=== PATIENT | female | born 1950 | race Caucasian/White ===

== ENCOUNTER 2016-12-14 00:43 | Day surgery (SDC) | payer OTHER ==
[~2016-12-14] VITALS: Ht 167.6 cm; Wt 72.6 kg
[~2016-12-14 00:43] MED LIST: ALPR0.254 PO; CHOL200047 PO; DIPH25CA6 PO; KRIL1CAP PO; PSYL660P17 PO; VITA1CAP16 PO
[2016-12-14] MEDS ORDERED: Lactated Ringer's 1,000 ML IV ONE (06:00)
[2016-12-14] MEDS ORDERED: Lactated Ringer's 1,000 ML IV SCH (07:10)
[2016-12-14 12:04] VITALS: BP 135/83; PULSE 101; RESP 16; O2SAT 99
--- NOTE | 2016-12-14 12:33 | PCM.HPANE ---
Patient Data Surgeon Admitting Provider: Attending Provider:Eduardo Bishop MD Primary Care Physician:Edith Graham Other Provider:Radha Swanson Anesthesia Reason for Visit Change Bowel Habit/Epgastric Pain Ht/WT & BMI Height (Feet): 5 Height (Inches): 6 Weight (Kilograms): 72.57 Body Mass Index 25.00 Allergies Coded Allergies: No Known Allergies (Verified , 12/13/16) Past Anesthesia History Anesthesia History: Denies:: Abnormal Airway, Anesthesia Reactions, Difficult Intubation, Fam Anesthesia Reaction, Fam Malignant Hypertherm, Malignant Hyperthermia Diabetes History Hx Diabetes?: No MRSA MRSA: No Medications Home Meds Incl Beta Chito: No Reported Medications Cholecalciferol (Vitamin D3) (Vitamin D3)2,000 Unit Capsule2,000 Unit PO DAILY 12/13/16 Psyllium Husk (Metamucil)3.4 Gram/5.4 Gram Paddpt291 Gm PO 12/13/16 Krill/Om3/Dha/Epa/Om6/Lip/Astx (Krill Oil 1,000 mg Softgel)1 Each Capsule1 Each PO DAILY 12/13/16 diphenhydrAMINE HCl (Benadryl)25 Mg Vzojbct37 Mg PO HS PRN Ref 0 12/13/16 Vitamin B Complex & Vit C No.3 (B Complex with Vitamin C)1 Each Capsule1 Each PO DAILY 12/13/16 Alprazolam 0.25 Mg Tablet0.25 Mg PO TID PRN For Anxiety Ref 0 12/13/16 History History of ENT Problems?: No HEENT History: Denies:: Abnormal Airway Difficult Intubation Dysphagia Hearing Problem Denture Type: None Teeth Condition: Within Normal Limits Hx of Heart Problems?: Yes Cardiovascular History: Positive for:: Valvular Heart Disease (mitral valve regurgitation) Denies:: AICD Atrial Fibrillation Chest Pain Hypertension Pacemaker Other History/Comments Normal heart function; Greater than 4 mets; no CP or hx LA. Recent stress test unremarkable Hx of Respiratory Problem?: No Respiratory History: Denies:: Asthma COPD Cough Hemoptysis Pneumonia Tuberculosis Hx Neurologic Problems?: No Neurological History: Denies:: CVA Hx of GI Problems?: Yes Hx of Problems?: No HX of Peritoneal Dialysis: No Female Hx: Denies:: Currently Hx Musculoskeletal Problems?: No Musculoskeletal History: Denies:: Fibromyalgia Joint Replacement Psycho Social History: Positive for:: Anxiety Denies:: Hx Depression Hx Surgeries?: Yes (sigmoid colon resection, hysterectomy, tonsillectomy, tubal preg.) Hx Any Other Health Problems?: Yes Hx Diabetes: No Hx Alcohol Use: Yes Stop/Bang Treated for Sleep Apnea?: No Do You Have a CPAP Machine?: No S-Snoring: Do You Snore Loudly: No T-Tired: feel tired, fatigued: No O-Obsered: Observed not breath: No P-Blood Pressure: treated: No B- Body Mass Index > 35 kg/m2: No A- Age over 50: Yes N- Neck Large Circumference: No G- Gender Male: No EVON Total Score: 1 Risk Assessment Category Category 1A: Patient has history of documented sleep apnea, and HAS NOT received any narcotic, sedative or anesthesia administration during this stay. Category 1B: Patient has history of documented sleep apnea, and HAS received any narcotic , sedative or anesthesia administration during this stay Category 2: Patient has SUSPECTED Obstructive Sleep Apnea, and HAS received any narcotic , sedative or anesthesia administration during this stay. Category 3: Patient has SUSPECTED Obstructive Sleep Apnea and HAS NOT received narcotic, sedative or anesthesia administration during this stay. Category 4: Outpatient in Procedural Areas with known sleep apnea or who screen positive for High Risk via the STOP/BANG questionnaire. Exam Exam Vital Signs Vital Signs Date Time Temp Pulse Resp B/P Pulse Ox O2 Delivery O2 Flow Rate FiO2 12/14/16 12:04 36.6 101 16 135/83 99 Room Air General Appearance: Alert, Oriented X3 HEENT/AIRWAY: MP 2, Neck Movement (FROM) Lungs: Clear to Auscultation, Clear to Percussion Heart: Exam Unremarkable, Regular Rate/Rhythm Meds/Labs/Diagnostics Admission Meds Current Medications Lactated Ringer's (Lr) 1,000 ml @ 10 mls/hr Q24H ONCE IV Last administered on 12/14/16t 12:15; Start 12/14/16 at 06:00; Stop 12/15/16 at 05:59 Plan Impression Patient chart reviewed, patient interviewed and anesthestic plan with risks, benefits, and alternatives discussed, and informed consent obtained. ASA Physical Status: ASA2 Mod Systemic Disease Anesthetic Plan: MAC Bene/Risks/Altern/Consents: Yes HP Complete Prior to Induction: Yes Harpal Junior MD Dec 14, 2016 12:30
== END 2016-12-14 23:59 | disposition home or self-care (01) ==
LOC: END 00:43
PROVIDERS: ATTEND Internal Medicine Gastroenterology
DX: R19.4 Change in bowel habit (principal); R10.13 Epigastric pain; Z53.09 Procedure and treatment not carried out because of other contraindication; Z87.19 Personal history of other diseases of the digestive system; Z86.010 Personal history of colon polyps; Z90.49 Acquired absence of other specified parts of digestive tract